=== PATIENT | male | born 1975 ===

== ENCOUNTER 2022-12-18 10:08 | Outpatient (CLI) | payer OTHER ==
[2022-12-18] MEDS ORDERED: COZAAR50 MG PO (13:34)
== END 2022-12-18 10:11 | disposition home or self-care (01) ==
LOC: LAB 10:08
PROVIDERS: ATTEND Urology
DX: I10 Essential (primary) hypertension (principal); Z03.818 Encounter for observation for suspected exposure to other biological agents ruled out; R10.9 Unspecified abdominal pain; R97.21 Rising PSA following treatment for malignant neoplasm of prostate; E11.9 Type 2 diabetes mellitus without complications; E78.00 Pure hypercholesterolemia, unspecified

== ENCOUNTER 2022-12-24 07:43 | Day surgery (SDC) | payer OTHER ==
[~2022-12-24 07:43] MED LIST: COZAAR50 MG PO
[2022-12-24] MEDS ORDERED: KETO10TA2 PO (12:18)
[2022-12-24] MEDS ORDERED: TYLENOL ARTHRI650 MG PO (12:18)
[2022-12-24] MEDS ORDERED: TRAMADOL HCL50 MG PO (12:18)
[2022-12-24] MEDS ORDERED: MIRALAX17 GM PO (12:18)
== END 2022-12-24 17:20 | disposition home or self-care (01) ==
LOC: CIR.AMB 07:43
PROVIDERS: ATTEND Surgery
DX: K42.0 Umbilical hernia with obstruction, without gangrene (principal); Z20.822 Contact with and (suspected) exposure to COVID-19
CPT/HCPCS: 49594; C1781